=== PATIENT | male | born 1985 | race Caucasian/White ===

== ENCOUNTER 2022-02-14 12:12 | Inpatient (IN) | payer SELFPAY ==
[2022-02-14 13:25] LABS: Basophils # (Auto) 0.1 K/mm3 (0.0-0.1); Basophils % (Auto) 0.7 % (0.0-1.8); Eosinophils # (Auto) 0.1 K/mm3 (0.0-0.4); Eosinophils % (Auto) 0.7 % (0.0-4.3); Hematocrit 55.8 % (35.5-45.6); Hemoglobin 18.8 gm/dl (11.8-15.2); Lymphocytes # (Auto) 2.6 K/mm3 (1.2-5.4); Lymphocytes % (Auto) 25.2 % (13.4-35.0); Mean Corpuscular HGB Conc 34 % (32-34); Mean Corpuscular Volume 85 fl (84-94); Monocytes # (Auto) 0.9 K/mm3 (0.0-0.8); Monocytes % (Auto) 8.5 % (0.0-7.3); Platelet Count 409 K/mm3 (140-440); Red Blood Count 6.57 M/mm3 (3.65-5.03); Red Cell Distribution Width 14.1 % (13.2-15.2)
[2022-02-14 13:35] LABS: Bacteria,Urine 1+ /HPF (Negative); Bilirubin,Urine NEG (Negative); Blood,Urine NEG (Negative); Color,Urine Amber (Yellow); Mucus,Urine 3+ /HPF; Urobilinogen,Urine < 2.0 mg/dL (<2.0)
[2022-02-14 13:49] LABS: Alanine Aminotransferase 18 units/L (7-56); Albumin 4.7 g/dL (3.9-5); BUN/Creatinine Ratio 14; Blood Urea Nitrogen 14 mg/dL (9-20); Calcium 10.2 mg/dL (8.4-10.2); Hemolysis Index 15
[2022-02-14] MEDS ORDERED: SODIUM CHLORIDE 0.9% 1000 ML 1,000 ML IV ONE (20:20)
[2022-02-14] MEDS ORDERED: MORPHINE 4 MG/1 ML INJ IV ONE (20:45)
[2022-02-14] MEDS ORDERED: FAMOTIDINE 20 MG/2 ML INJ IV ONE (20:45)
[2022-02-14] MEDS ORDERED: ONDANSETRON 4 MG/2 ML INJ IV ONE (20:45)
--- NOTE | 2022-02-14 22:35 | Cat Scan Report ---
CT ABDOMEN AND PELVIS WITH CONTRAST INDICATION / CLINICAL INFORMATION: abdominal pain, N/V. TECHNIQUE: Axial CT images were obtained through the abdomen and pelvis after 100 cc of Omnipaque [address] scans at this location are performed using CT dose reduction for ALARA by means of automated exposure control. COMPARISON: None available. FINDINGS: LOWER CHEST: No significant abnormality. AORTA / ARTERIES: No significant abnormality. IVC / VEINS: No significant abnormality. LYMPH NODES: No significant adenopathy. COLON: No significant abnormality. APPENDIX: No significant abnormality. STOMACH / SMALL BOWEL: Short segment of dilated small bowel involving the proximal jejunum. This lamont ures up to 3.3 cm PERITONEUM: No free fluid. No free air. No fluid collection. LIVER: No significant abnormality. GALLBLADDER: No significant abnormality. BILE DUCTS: No significant abnormality. PANCREAS: No significant abnormality. SPLEEN: No significant abnormality. ADRENALS: No significant abnormality. RIGHT KIDNEY / URETER: No significant abnormality. LEFT KIDNEY / URETER: No significant abnormality. URINARY BLADDER: No significant abnormality. REPRODUCTIVE ORGANS: No significant abnormality. SKELETAL SYSTEM: No significant abnormality. ADDITIONAL FINDINGS: None. IMPRESSION: 1. Short segment of dilated proximal jejunum which can be seen with a low-grade partial small bowel o bstruction versus enteritis. Signer Name: Yayo Blood DO Signed: 02/14/2022 10:30 PM Workstation Name: [id number]
--- NOTE | 2022-02-15 01:34 | Emergency Department Report ---
ED Abdominal Pain HPI - General Chief Complaint: Abdominal Pain Stated Complaint: ABDOMINAL PAIN Source: patient, family Mode of arrival: Ambulatory Limitations: Language Barrier - History of Present Illness Initial Comments: Patient is a 36-year-old male with history of ikk-wmksdwn-nzmtimgyf diabetes who presents to the ED with complaint of acute onset persistent intr actable nausea and vomiting for the last 3 days. Patient also complains of persistent diffuse abdominal pain with lack of appetite. Patient states that the vomiting is gets triggered whenever he tries to drink fluids or eat any food. Patient denies fever, chills, cough, chest pain or shortness of breath, sore throat, dysuria, urinary frequency and urgency, hematuria, testicular pain, diarrhea, hematochezia, hematemesis, headache, dizziness or seizures and lightheadedness or syncope MD Complaint: abdominal pain, other (Nausea and vomiting) -: Sudden, days(s) (3) Location: diffuse Radiation: none Migration to: no migration Severity scale (0 -10): 8 Quality: cramping, sharp Consistency: constant Improves With: nothing Worsens With: eating, vomiting Context: possible food poisoning Associated Symptoms: denies other symptoms, nausea, vomiting. denies: diarrhea, fever, chills, constipation, dysuria, hematemesis, hematochezia, melena, hematuria, anorexia, syncope - Related Data Previous Rx's Medication Instructions Recorded Last Taken Type HYDROcodone/APAP 5-325 [[place] 1 - 2 each PO Q6HR PRN #14 tablet 10/29/15 Unknown Rx 5/325] Ranitidine HCl [Acid Panel Installer] 150 mg PO BID #60 tablet 10/29/15 Unknown Rx Allergies Allergy/AdvReac Type Severity Reaction Status Date / Time No Known Allergies Allergy Verified 10/28/15 18:51 ED Review of Systems ROS: Stated complaint: ABDOMINAL PAIN Other details as noted in HPI Constitutional: denies: chills, fever Eyes: denies: eye pain, eye discharge, vision change ENT: denies: ear pain, throat pain Respiratory: denies: cough, shortness of breath, wheezing Cardiovascular: denies: chest pain, palpitations Endocrine: no symptoms reported Gastrointestinal: abdominal pain, nausea, vomiting. denies: diarrhea Genitourinary: denies: urgency, dysuria Musculoskeletal: denies: back pain, joint swelling, arthralgia Skin: denies: rash, lesions Neurological: denies: headache, weakness, paresthesias Psychiatric: denies: anxiety, depression Hematological/Lymphatic: denies: easy bleeding, easy bruising ED Past Medical Hx - Past Medical History Previous Medical History?: Yes Hx Diabetes: Yes - Surgical History Past Surgical History?: No - Social History Smoking Status: Current Some Day Smoker Substance Use Type: None (denies illicit drug use), Alcohol (occasional) - Medications Home Medications: Home Medications Medication Instructions Recorded Confirmed Last Taken Type HYDROcodone/APAP 5-325 [[place] 1 - 2 each PO Q6HR PRN #14 tablet 10/29/15 Unknown Rx 5/325] Ranitidine HCl [Acid Panel Installer] 150 mg PO BID #60 tablet 10/29/15 Unknown Rx ED Physical Exam - General Limitations: Language Barrier General appearance: alert, in no apparent distress - Head Head exam: Present: atraumatic, normocephalic, normal inspection - Eye Eye exam: Present: normal appearance, PERRL, EOMI Pupils: Present: normal accommodation - ENT ENT exam: Present: normal exam, normal orophraynx, mucous membranes moist, TM's normal bilaterally, normal external ear exam - Neck Neck exam: Present: normal inspection, full ROM. Absent: tenderness - Respiratory Respiratory exam: Present: normal lung sounds bilaterally. Absent: respiratory distress, wheezes, rales, rhonchi, chest wall tenderness, decreased breath sounds - Cardiovascular Cardiovascular Exam: Present: regular rate, normal rhythm, normal heart sounds. Absent: systolic murmur, diastolic murmur, rubs, gallop - GI/Abdominal GI/Abdominal exam: Present: soft, tenderness (Palpable diffuse abdominal t enderness), hyperactive bowel sounds. Absent: guarding, rebound, normal bowel sounds, hypoactive bowel sounds, organomegaly - Extremities Exam Extremities exam: Present: normal inspection, full ROM, normal capillary refill. Absent: tenderness - Back Exam Back exam: Present: normal inspection, full ROM. Absent: tenderness, CVA tenderness (R), CVA tenderness (L), muscle spasm, paraspinal tenderness, vertebral tenderness - Neurological Exam Neurological exam: Present: alert, oriented X3, CN II-XII intact, normal gait, reflexes normal - Psychiatric Psychiatric exam: Present: normal affect, normal mood - Skin Skin exam: Present: warm, dry, intact, normal color. Absent: rash ED Course Vital Signs 02/14/22 02/14/22 02/14/22 20:59 21:01 21:15 Pulse Rate Respiratory Rate Blood Pressure 123/79 123/79 Blood Pressure [Left] O2 Sat by Pulse 100 98 98 Oximetry 02/14/22 02/14/22 02/14/22 21:31 22:09 22:15 Pulse Rate Respiratory Rate Blood Pressure 116/82 118/88 118/88 Blood Pressure [Left] O2 Sat by Pulse 98 98 99 Oximetry 02/14/22 02/14/22 02/14/22 22:31 23:01 23:31 Pulse Rate Respiratory Rate Blood Pressure 114/76 106/76 114/78 Blood Pressure [Left] O2 Sat by Pulse 99 99 98 Oximetry 02/14/22 02/15/22 02/15/22 23:47 00:01 00:02 Pulse Rate 69 Respiratory 14 Rate Blood Pressure 114/78 92/56 Blood Pressure 92/56 [Left] O2 Sat by Pulse 98 98 100 Oximetry 02/15/22 02/15/22 02/15/22 00:26 00:31 01:01 Pulse Rate 87 Respiratory 14 Rate Blood Pressure 95/60 92/60 Blood Pressure 102/69 [Left] O2 Sat by Pulse 100 98 97 Oximetry - Reevaluation(s) Reevaluation #1: 02/15/22 01:38 I paged and discussed the patient's case with the general surgeon on-call Dr. Bustos who advised that the patient be admitted to the hospital by the hospitalist physician on-call Dr. Damon, and that an NG tube be placed on the patient. I also paged and discussed the patient's case with the hospitalist physician on-call Dr. Damon who admitted the patient to the hospital. ED Medical Decision Making - Lab Data Result diagrams: 02/14/22 12:43 02/14/22 12:43 - Radiology Data Radiology results: report reviewed, image reviewed [facility] [address] [place] [address] Cat Scan Report Signed Patient: CASSIE VILLALOBOS MR#: [id number] : 1985 Acct:[id number] Age/Sex: 36 / M A DM Date: 02/14/22 Loc: ED Attending Dr: Ordering Physician: SHERMAN ALAS Date of Service: 02/14/22 Procedure(s): CT abdomen pelvis w con Accession Number(s): [id number] cc: SHERMAN ALAS CT ABDOMEN AND PELVIS WITH CONTRAST INDICATION / CLINICAL INFORMATION: abdominal pain, N/V. TECHNIQUE: Axial CT images were obtained through the abdomen and pelvis after 100 cc of Omnipaque [address] scans at this location are performed using CT dose reduction for ALARA by means of automated exposure control. COMPARISON: None available. FINDINGS: LOWER CHEST: No significant abnormality. AORTA / ARTERIES: No significant abnormality. IVC / VEINS: No significant abnormality. LYMPH NODES: No significant adenopathy. COLON: No significant abnormality. APPENDIX: No significant abnormality. STOMACH / SMALL BOWEL: Short segment of dilated small bowel involving the proximal jejunum. This measures up to 3.3 cm PERITONEUM: No free fluid. No free air. No fluid collection. LIVER: No significant abnormality. GALLBLADDER: No significant abnormality. BILE DUCTS: No significant abnormality. PANCREAS: No significant abnormality. SPLEEN: No significant abnormality. ADRENALS: No significant abnormality. RIGHT KIDNEY / URETER: No significant abnormality. LEFT KIDNEY / URETER: No significant abnormality. URINARY BLADDER: No significant abnormality. REPRODUCTIVE ORGANS: No significant abnormality. SKELETAL SYSTEM: No significant abnormality. ADDITIONAL FINDINGS: None. IMPRESSION: 1. Short segment of dilated proximal jejunum which can be seen with a low-grade partial small bowel obstruction versus enteritis. Signer Name: Yayo Cleary DO Signed: 02/14/2022 10:30 PM Workstation Name: [id number] Transcribed By: NS Dictated By: YAYO CLEARY DO Electronically Authenticated By: YAYO CLEARY DO Signed Date/Time: 02/14/222229 DD/ 26 TD/TT: - Medical Decision Making This is a 36-year-old male with history of lmh-xdfpwlz-ekxhmyfar diabetes who presents to the ED with complaint of acute onset persistent intractable nausea and vomiting for the last 3 days. Patient also complains of persistent diffuse abdominal pain with lack of appetite. Patient states that the vomiting is gets triggered whenever he tries to drink fluids or eat any food. In the ED, patient is alert and oriented x3 and is not in any distress. Patient was treated in the ED for nausea and vomiting, also given antacids and pain medications. Patient also received normal saline 1 L IV bolus x1. Lab test results were reviewed and are all nonactionable except for hyperglycemia of 264 mg/dL which after normal saline 1 L IV bolus infusion, the jluoq-ew-yhmu blood glucose was 223 mg/dL. Abdomen pelvis CT scan with IV contrast showed short segment of dilated proximal jejunum which can be seen with a low-grade partial small bowel obstruction versus enteritis. I therefore discussed the patient's case with the ED attending physician Dr. Diego who agreed with the plan of care to consult the general surgeon on-call Dr. Bustos and the hospitalist physician on-call Dr. Damon for admission of the patient to the hospital. I therefore paged and discussed the patient's case with Dr. Bustos who advised that the patient be admitted to the hospital by the hospitalist physician on-call Dr. Damon, and that an NG tube be inserted and the patient to d ecompress the abdomen and the patient be given pain medications. Dr. Bustos to consult on the patient upon admission. I therefore paged and discussed the patient's case with Dr. Damon the hospitalist physician on-call who admitted the patient to the hospital. - Differential Diagnosis Dehydration; GERD; viral gastroenteritis; SBO; pancreatitis; appendicitis Critical care attestation.: If time is entered above; I have spent that time in minutes in the direct care of this critically ill patient, excluding procedure time. ED Disposition Clinical Impression: Abdominal pain in male, Nausea and vomiting in adult patient, Partial small bowel obstruction Hyperglycemia due to type 2 diabetes mellitus Qualifiers: Diabetes mellitus shelter insulin use: without shelter use Qualified Code(s): E11.65 - Type 2 diabetes mellitus with hyperglycemia Disposition: 02 SHORT TERM HOSPITAL Is pt being admited?: Yes Does the pt Need Aspirin: No Condition: Stable Instructions: Diabetes Mellitus Type 2 in Adults (ED) Referrals: PRIMARY CARE, [Primary Care Provider] - 3-5 Days Time of Disposition: 01:37 Print Language: MAURITANIAN
[2022-02-15] MEDS ORDERED: ONDANSETRON 4 MG/2 ML INJ IV ONE (01:41)
[2022-02-15] MEDS ORDERED: MORPHINE 2 MG/1 ML INJ IV PRN (01:41)
[2022-02-15] MEDS ORDERED: ONDANSETRON 4 MG/2 ML INJ IV PRN (01:41)
[2022-02-15] MEDS ORDERED: SODIUM CHLORIDE 0.9% 1000 ML 1,000 ML IV ONE (01:41)
[2022-02-15] MEDS ORDERED: ACETAMINOPHEN 325 MG TAB PO PRN ×2 (01:41→03:23)
[2022-02-15] MEDS ORDERED: HYDROmorphone 1 MG/1 ML INJ IV ONE (01:41)
[2022-02-15] MEDS ORDERED: DEXTROSE 50% IN WATER (25GM) 50 ML SYRINGE IV PRN (03:23)
[2022-02-15] MEDS ORDERED: MORPHINE 4 MG/1 ML INJ IV PRN (03:23)
--- NOTE | 2022-02-15 03:30 | History and Physical Report ---
History of Present Illness Date of examination: 02/15/22 Date of admission: 02/15/22 Chief complaint: Abdominal pain History of present illness: 36-year-old male with history of eqx-violtuw-xffmowlzz diabetes who presents to the ED with complaint of acute onset persistent intractable nausea and vomiting for the last 3 days. Patient also complains of persistent diffuse abdominal pain with lack of appetite. Patient states that the vomiting is gets triggered whenever he tries to drink fluids or eat any food. Patient denies fever, chills, cough, chest pain or shortness of breath, sore throat, dysuria, urinary frequency and urgency, hematuria, testicular pain, diarrhea, hematochezia, hematemesis, headache, dizziness or seizures and lightheadedness or syncope In the emergency room patient Abdomen pelvis CT scan with IV contrast showed short segment of dilated proximal jejunum which can be seen with a low-grade partial small bowel obstruction versus enteritis. Subsequently Case discussed with on-call surgeon Dr. Bustos will see the patient in consultation. Past History Past Medical History: diabetes Past Surgical History: No surgical history Social history: smoking, alcohol abuse Family history: diabetes Medications and Allergies Allergies Allergy/AdvReac Type Severity Reaction Status Date / Time No Known Allergies Allergy Verified 10/28/15 18:51 Home Medications Medication Instructions Recorded Confirmed Last Taken Type HYDROcodone/APAP 5-325 [[place] 1 - 2 each PO Q6HR PRN #14 tablet 10/29/15 Unknown Rx 5/325] Ranitidine HCl [Acid Fashion Stylist] 150 mg PO BID #60 tablet 10/29/15 Unknown Rx Active Meds: Active Medications Acetaminophen (Acetaminophen 325 Mg Tab) 650 mg PO Q4H PRN PRN Reason: Pain MILD(1-3)/Fever >100.5/SEGAL Acetaminophen (Acetaminophen 325 Mg Tab) 650 mg PO Q4H PRN PRN Reason: Pain MILD(1-3)/Fever >100.5/SEGAL Dextrose (Dextrose 50% In Water (25gm) 50 Ml Syringe) 50 ml IV Q30MIN PRN; Protocol PRN Reason: Hypoglycemia Famotidine (Famotidine 20 Mg/2 Ml Inj) 20 mg IV BID AZUL Heparin Sodium (Porcine) (Heparin 5,000 Unit/1 Ml Vial) 5,000 unit SUB-Q Q12HR AZUL Dextrose/Sodium Chloride (D5/0.45ns) 1,000 mls @ 100 mls/hr IV DIRECT AZUL Insulin Human Lispro (Insulin Lispro 100 Unit/Ml) 0 unit SUB-Q Q6HR AZUL; Protocol Morphine Sulfate (Morphine 2 Mg/1 Ml Inj) 2 mg IV Q4H PRN PRN Reason: Pain, Moderate (4-6) Morphine Sulfate (Morphine 2 Mg/1 Ml Inj) 2 mg IV Q4H PRN PRN Reason: Pain, Moderate (4-6) Morphine Sulfate (Morphine 4 Mg/1 Ml Inj) 4 mg IV Q4H PRN PRN Reason: Pain , Severe (7-10) Ondansetron HCl (Ondansetron 4 Mg/2 Ml Inj) 4 mg IV Q8H PRN PRN Reason: Nausea And Vomiting Ondansetron HCl (Ondansetron 4 Mg/2 Ml Inj) 4 mg IV Q8H PRN PRN Reason: Nausea And Vomiting Sodium Chloride (Sodium Chloride 0.9% 10 Ml Flush Syringe) 10 ml IV PRN PRN PRN Reason: LINE FLUSH Sodium Chloride (Sodium Chloride 0.9% 10 Ml Flush Syringe) 10 ml IV BID AZUL Sodium Chloride (Sodium Chloride 0.9% 10 Ml Flush Syringe) 10 ml IV PRN PRN PRN Reason: LINE FLUSH Review of Systems All systems: negative Gastrointestinal: abdominal pain, nausea, vomiting, other (Lack of appetite) Exam - Constitutional Vitals: Temp Pulse Resp BP Pulse Ox 87 14 108/71 97 02/15/22 00:26 02/15/22 00:26 02/15/22 02:31 02/15/22 02:31 General appearance: Present: no acute distress, well-nourished - EENT Eyes: Present: PERRL ENT: hearing intact, clear oral mucosa - Neck Neck: Present: supple, normal ROM - Respiratory Respiratory effort: normal Respiratory: bilateral: CTA - Cardiovascular Heart Sounds: Present: S1 & S2. Absent: rub, click - Extremities Extremities: pulses symmetrical, No edema Peripheral Pulses: within normal limits - Abdominal General gastrointestinal: Present: soft, non-tender, non-distended, normal bowel sounds Male genitourinary: Present: normal - Integumentary Integumentary: Present: clear, warm, dry - Musculoskeletal Musculoskeletal: gait normal, strength equal bilaterally - Psychiatric Psychiatric: appropriate mood/affect, intact judgment & insight - Neurologic Neurologic: CNII-XII intact, moves all extremities Results - Labs CBC & Chem 7: 02/14/22 12:43 02/14/22 12:43 Labs: Laboratory Last Values WBC 10.2 K/mm3 (4.5-11.0) 02/14/22 12:43 RBC 6.57 M/mm3 (3.65-5.03) H 02/14/22 12:43 Hgb 18.8 gm/dl (11.8-15.2) H 02/14/22 12:43 Hct 55.8 % (35.5-45.6) H 02/14/22 12:43 MCV 85 fl (84-94) 02/14/22 12:43 MCH 29 pg (28-32) 02/14/22 12:43 MCHC 34 % (32-34) 02/14/22 12:43 RDW 14.1 % (13.2-15.2) 02/14/22 12:43 Plt Count 409 K/mm3 (140-440) 02/14/22 12:43 Lymph % (Auto) 25.2 % (13.4-35.0) 02/14/22 12:43 [place] % (Auto) 8.5 % (0.0-7.3) H 02/14/22 12:43 Eos % (Auto) 0.7 % (0.0-4.3) 02/14/22 12:43 Baso % (Auto) 0.7 % (0.0-1.8) 02/14/22 12:43 Lymph # (Auto) 2.6 K/mm3 (1.2-5.4) 02/14/22 12:43 [place] # (Auto) 0.9 K/mm3 (0.0-0.8) H 02/14/22 12:43 Eos # (Auto) 0.1 K/mm3 (0.0-0.4) 02/14/22 12:43 Baso # (Auto) 0.1 K/mm3 (0.0-0.1) 02/14/22 12:43 Seg Neutrophils % 64.9 % (40.0-70.0) 02/14/22 12:43 Seg Neutrophils # 6.6 K/mm3 (1.8-7.7) 02/14/22 12:43 Sodium 136 mmol/L (137-145) L 02/14/22 12:43 Potassium 4.0 mmol/L (3.6-5.0) 02/14/22 12:43 Chloride 92.6 mmol/L (98-107) L 02/14/22 12:43 Carbon Dioxide 29 mmol/L (22-30) 02/14/22 12:43 Anion Gap 18 mmol/L 02/14/22 12:43 BUN 14 mg/dL (9-20) 02/14/22 12:43 Creatinine 1.0 mg/dL (0.8-1.3) 02/14/22 12:43 Estimated GFR > 60 ml/min 02/14/22 12:43 BUN/Creatinine Ratio 14 % 02/14/22 12:43 Glucose 264 mg/dL (75-100) H 02/14/22 12:43 POC Glucose 223 mg/dL (70-105) H 02/14/22 22:20 Calcium 10.2 mg/dL (8.4-10.2) 02/14/22 12:43 Total Bilirubin 0.60 mg/dL (0.1-1.2) 02/14/22 12:43 AST 15 units/L (5-40) 02/14/22 12:43 ALT 18 units/L (7-56) 02/14/22 12:43 Alkaline Phosphatase 102 units/L (35-129) 02/14/22 12:43 Total Protein 8.7 g/dL (6.3-8.2) H 02/14/22 12:43 Albumin 4.7 g/dL (3.9-5) 02/14/22 12:43 Albumin/Globulin Ratio 1.2 % 02/14/22 12:43 Lipase 34 units/L (13-60) 02/14/22 12:43 Urine Color Stormy (Yellow) 02/14/22 12:37 Urine Turbidity Clear (Clear) 02/14/22 12:37 Urine pH 5.0 (5.0-7.0) 02/14/22 12:37 Ur Specific Cobb 1.027 (1.003-1.030) 02/14/22 12:37 Urine Protein 100 mg/dl mg/dL (Negative) 02/14/22 12:37 Urine Glucose (UA) >=500 mg/dL (Negative) 02/14/22 12:37 Urine Ketones 80 mg/dL (Negative) 02/14/22 12:37 Urine Blood Neg (Negative) 02/14/22 12:37 Urine Nitrite Neg (Negative) 02/14/22 12:37 Urine Bilirubin Neg (Negative) 02/14/22 12:37 Urine Urobilinogen < 2.0 mg/dL (<2.0) 02/14/22 12:37 Ur Leukocyte Esterase Neg (Negative) 02/14/22 12:37 Urine WBC (Auto) 2.0 /HPF (0.0-6.0) 02/14/22 12:37 Urine RBC (Auto) 3.0 /HPF (0.0-6.0) 02/14/22 12:37 U Epithel Cells (Auto) 2.0 /HPF (0-13.0) 02/14/22 12:37 Urine Bacteria (Auto) 1+ /HPF (Negative) 02/14/22 12:37 Urine Mucus 3+ /HPF 02/14/22 12:37 - Imaging and Cardiology CT scan - abdomen: report reviewed Assessment and Plan VTE prophylaxis?: Chemical Plan of care discussed with patient/family: Yes - Patient Problems (1) Partial small bowel obstruction Current Visit: Yes Status: Acute Plan to address problem: Admit the patient to the [facility]. NPO. Normal saline at the rate of 100 cc/h. Pepcid 20 mg IV every 12 hours. Zofran 4 million IV every 6 hours as needed. Reconsult surgeon Dr. Bustos to see the patient for evaluation and further management. (2) Abdominal pain in male Current Visit: Yes Status: Acute Plan to address problem: Morphine 2 mg IV every 4 hours as needed. Pepcid 20 mg IV every 12 hours. (3) Hyperglycemia due to type 2 diabetes mellitus Current Visit: Yes Status: Acute Qualifiers: Diabetes mellitus dedicated intermodal truck driver insulin use: without dedicated intermodal truck driver use Qualified Code(s): E11.65 - Type 2 diabetes mellitus with hyperglycemia Plan to address problem: Accu-Chek every 6 hours with Humalog moderate dose coverage. Diabetic education (4) Nausea and vomiting in adult patient Current Visit: Yes Status: Acute Plan to address problem: NPO. Normal saline at the rate of 100 cc/h. Pepcid 20 mg IV every 12 hours. Zofran 4 million IV every 6 hours as needed. Reconsult surgeon Dr. Bustos to see the patient for evaluation and further management. (5) DVT prophylaxis Current Visit: Yes Status: Acute Plan to address problem: Heparin 5000 units subcu every 12 hours for DVT prophylaxis. Pepcid 20 mg IV every 12 hours for GI prophylaxis. Patient is a full code
--- NOTE | 2022-02-15 04:27 | XRay Report ---
ABDOMEN 1 VIEW(S) 02/15/2022 4:11 AM INDICATION / CLINICAL INFORMATION: NG Tube placement. COMPARISON: None available. FINDINGS: The tip of an esophagogastric tube projects over the body of the stomach in expected position. Signer Name: Vlad Jenkins MD Signed: 02/15/2022 4:23 AM Workstation Name: [id number]
[2022-02-15] MEDS: D5W/0.45% NACL 1,000 ML IV SCH ×3 (05:02→22:29)
[2022-02-15] MEDS: INSULIN LISPRO 100 UNIT/ML SUB-Q SCH ×3 (06:27→17:42)
[2022-02-15] MEDS: FAMOTIDINE 20 MG/2 ML INJ IV SCH ×2 (09:15→22:50)
[2022-02-15] MEDS: MORPHINE 2 MG/1 ML INJ IV PRN ×2 (09:15→22:13)
[2022-02-15] MEDS: HEPARIN 5,000 UNIT/1 ML VIAL SUB-Q SCH ×2 (09:19→22:14)
[2022-02-15] MEDS: ONDANSETRON 4 MG/2 ML INJ IV PRN ×2 (09:23→22:14)
--- NOTE | 2022-02-15 13:41 | Event Note ---
Date: 02/15/22 Patient seen and examined at the bedside multiple times. Patient and do not understand the magnitude of patient's condition. Patient wants to eat and threatens to remove NG tube. Explained risk of patient not following care plan and leaving AGAINST MEDICAL ADVICE. Patient will stay and wait for general surgery evaluation. No other complaints at this time.
[2022-02-15] MEDS ORDERED: PHENOL 1.4% 177 ML BOTTLE MM PRN (13:51)
--- NOTE | 2022-02-15 20:01 | Consultation ---
History of Present Illness Consult date: 02/15/22 Reason for consult: abdominal pain - History of present illness History of present illness: 36 yo male with 4 day h/o diffuse, crampy abdominal pain, nausea and vomiting. No prior abd surgery or hernias. No hematochezia. No contacts with similar complaints. Past History Past Medical History: diabetes Past Surgical History: No surgical history Social history: smoking, alcohol abuse Family history: diabetes Medications and Allergies Allergies Allergy/AdvReac Type Severity Reaction Status Date / Time No Known Allergies Allergy Verified 10/28/15 18:51 Home Medications Medication Instructions Recorded Confirmed Last Taken Type HYDROcodone/APAP 5-325 [[place] 1 - 2 each PO Q6HR PRN #14 tablet 10/29/15 02/15/22 Unknown Rx 5/325] Ranitidine HCl [Acid [employer]] 150 mg PO BID #60 tablet 10/29/15 02/15/22 Unknown Rx Active Meds: Active Medications Acetaminophen (Acetaminophen 325 Mg Tab) 650 mg PO Q4H PRN PRN Reason: Pain MILD(1-3)/Fever >100.5/SEGAL Dextrose (Dextrose 50% In Water (25gm) 50 Ml Syringe) 50 ml IV Q30MIN PRN; Protocol PRN Reason: Hypoglycemia Famotidine (Famotidine 20 Mg/2 Ml Inj) 20 mg IV BID [facility] Last Admin: 02/15/22 09:15 Dose: 20 mg Heparin Sodium (Porcine) (Heparin 5,000 Unit/1 Ml Vial) 5,000 unit SUB-Q Q12HR [facility] Last Admin: 02/15/22 09:19 Dose: 5,000 unit Dextrose/Sodium Chloride (D5/0.45ns) 1,000 mls @ 100 mls/hr IV DIRECT AZUL Last Admin: 02/15/22 12:30 Dose: 100 mls/hr Insulin Human Lispro (Insulin Lispro 100 Unit/Ml) 0 unit SUB-Q Q6HR [facility]; Protocol Last Admin: 02/15/22 17:42 Dose: Not Given Morphine Sulfate (Morphine 2 Mg/1 Ml Inj) 2 mg IV Q4H PRN PRN Reason: Pain, Moderate (4-6) Last Admin: 02/15/22 09:15 Dose: 2 mg Morphine Sulfate (Morphine 4 Mg/1 Ml Inj) 4 mg IV Q4H PRN PRN Reason: Pain , Severe (7-10) Ondansetron HCl (Ondansetron 4 Mg/2 Ml Inj) 4 mg IV Q8H PRN PRN Reason: Nausea And Vomiting Last Admin: 02/15/22 09:23 Dose: 4 mg Phenol (Phenol 1.4% 177 Ml Bottle) 1 spray MM PRN PRN PRN Reason: Sore Throat Last Admin: 02/15/22 14:04 Dose: 1 spray Sodium Chloride (Sodium Chloride 0.9% 10 Ml Flush Syringe) 10 ml IV BID [facility] Last Admin: 02/15/22 10:00 Dose: 10 ml Sodium Chloride (Sodium Chloride 0.9% 10 Ml Flush Syringe) 10 ml IV PRN PRN PRN Reason: LINE FLUSH Review of Systems All systems: negative Exam Vital Signs Pulse Ox 100 02/14/22 20:59 - General physical appearance Positive: well developed, well nourished, no distress - Eyes Positive: PERRL, normal occular movement - ENT Positive: normal pinna, normal nares, normal mucosa, no hearing loss, no congestion - Neck Positive: no masses, no bruits, trachea midline, no venous distension - Respiratory Positive: normal expansion, normal respiratory effort, clear to auscultation - Cardiovascular Rhythm: regular Heart Sounds: Present: S1 & S2. Absent: rub, click - Extremities Extremities: no ischemia, pulses symmetrical, No edema - Breasts Breasts: normal, no mass, no skin changes - Abdomen Abdomen: Present: soft, bowel sounds normal. Absent: tender, distended Hernia: none - Genitourinary Male Genitourinary: normal Female Genitourinary: normal - Integumentary no rash, no growths, no abnormal pigmentation - Neurologic Neurologic: alert and oriented to time, place and person, motor strength and sensation are grossly intact - Musculoskeletal normal gait, normal posture - Psychiatric Psychiatric: appropriate mood/affect, intact judgment & insight Results - Labs 02/14/22 12:43 02/14/22 12:43 Abnormal lab results 02/14/22 02/15/22 02/15/22 Range/Units 22:20 06:20 11:33 POC Glucose 223 H 225 H 238 H (70-105) mg/dL 02/15/22 Range/Units 17:18 POC Glucose 182 H (70-105) mg/dL - Imaging CT scan - abdomen: report reviewed CT scan - pelvis: report reviewed Assessment and Plan - Patient Problems (1) Partial small bowel obstruction Current Visit: Yes Status: Acute Plan to address problem: 1) CBC, BMP and AXR in the am 2) NPO 3) NG to LIS
[2022-02-16] MEDS: INSULIN LISPRO 100 UNIT/ML SUB-Q SCH ×4 (00:12→18:06)
[2022-02-16] MEDS: MORPHINE 2 MG/1 ML INJ IV PRN ×2 (05:57→10:06)
[2022-02-16 06:40] LABS: Basophils % (Auto) 0.4 % (0.0-1.8); Eosinophils # (Auto) 0.2 K/mm3 (0.0-0.4); Eosinophils % (Auto) 1.9 % (0.0-4.3); Hematocrit 46.6 % (35.5-45.6); Lymphocytes # (Auto) 3.5 K/mm3 (1.2-5.4); Mean Corpuscular HGB Conc 34 % (32-34); Mean Corpuscular Volume 86 fl (84-94); Monocytes # (Auto) 0.9 K/mm3 (0.0-0.8); Monocytes % (Auto) 9.6 % (0.0-7.3); Platelet Count 327 K/mm3 (140-440); Red Blood Count 5.43 M/mm3 (3.65-5.03); Red Cell Distribution Width 14.3 % (13.2-15.2)
[2022-02-16 06:52] LABS: BUN/Creatinine Ratio 12; Blood Urea Nitrogen 11 mg/dL (9-20); Calcium 9.1 mg/dL (8.4-10.2); Hemolysis Index 26
[2022-02-16] MEDS: D5W/0.45% NACL 1,000 ML IV SCH (08:42)
--- NOTE | 2022-02-16 08:42 | XRay Report ---
ABDOMEN 2 VIEW(S) INDICATION / CLINICAL INFORMATION: Partial small bowel obstruction. COMPARISON: Yesterday FINDINGS: TUBES / LINES: The nasogastric tube is unchanged in position. The sidehole of the nasogastric tube te rminates at the GE junction. Consider advancement by 5 cm. BOWEL GAS PATTERN: No significant abnormality. No dilated bowel or fluid levels are identified. FREE AIR / EXTRALUMINAL GAS: None seen. ADDITIONAL FINDINGS: No significant additional findings. IMPRESSION: No significant abnormality. Consider advancement of the nasogastric tube. Signer Name: Arnoldo Chin Jr, MD Signed: 02/16/2022 8:37 AM Workstation Name: [id number]
[2022-02-16] MEDS: ONDANSETRON 4 MG/2 ML INJ IV PRN (10:14)
[2022-02-16] MEDS: HEPARIN 5,000 UNIT/1 ML VIAL SUB-Q SCH ×2 (10:29→21:58)
[2022-02-16] MEDS: FAMOTIDINE 20 MG/2 ML INJ IV SCH ×2 (10:29→21:58)
--- NOTE | 2022-02-16 11:42 | Progress Note ---
Assessment and Plan Assessment and plan: #Partial small bowel obstruction -continue NGT to suction, IVFs, PRN zofran -patient reports flatus that improves his abdominal pain -General surgery following, assistance appreciated #Abdominal pain in male-resolved #Nausea and vomiting in adult patient-improved -likely secondary to above, continue PRN pain medications and antiemetics #Hyperglycemia due to type 2 diabetes mellitus -continue accu-chek every 6 hours with Humalog high dose coverage #Advanced care planning -Disease education conducted, care plan discussed, diagnoses discussed, prognosis discussed, and patient acknowledges understanding with care plan -Time: +30 min History Interval history: Patient seen and examined at bedside with . He continues to pass flatus and is having throat pain that he feels is associated with the NG tube. Counseled patient on importance of keeping NG tube until surgeon feels it is safe for it to be removed. Hospitalist Physical - Physical exam Narrative exam: GENERAL: Well-developed well-nourished. In no acute distress. HEENT: NG tube in place CHEST/LUNGS: CTAB on room air HEART/CARDIOVASCULAR: RRR. No murmur, rubs or gallops appreciated. ABDOMEN: +BS. NT/ND. SKIN: No rashes noted. NEURO: No focal motor deficit. Follows all commands. MUSCULOSKELETAL: No joint effusion EXTREMITIES: No cyanosis, clubbing or edema. PSYCH: Cooperative. - Constitutional Vitals: Temp Pulse Resp BP Pulse Ox 97.4 F L 58 L 18 114/84 97 02/16/22 05:39 02/16/22 05:39 02/16/22 05:39 02/16/22 05:39 02/16/22 10:19 General appearance: Present: no acute distress, well-nourished Results - Labs CBC & Chem 7: 02/16/22 05:46 02/17/22 05:53 Labs: Laboratory Last Values WBC 9.7 K/mm3 (4.5-11.0) 02/16/22 05:46 RBC 5.43 M/mm3 (3.65-5.03) H 02/16/22 05:46 Hgb 16.0 gm/dl (11.8-15.2) H 02/16/22 05:46 Hct 46.6 % (35.5-45.6) H D 02/16/22 05:46 MCV 86 fl (84-94) 02/16/22 05:46 MCH 30 pg (28-32) 02/16/22 05:46 MCHC 34 % (32-34) 02/16/22 05:46 RDW 14.3 % (13.2-15.2) 02/16/22 05:46 Plt Count 327 K/mm3 (140-440) 02/16/22 05:46 Lymph % (Auto) 36.0 % (13.4-35.0) H 02/16/22 05:46 [place] % (Auto) 9.6 % (0.0-7.3) H 02/16/22 05:46 Eos % (Auto) 1.9 % (0.0-4.3) 02/16/22 05:46 Baso % (Auto) 0.4 % (0.0-1.8) 02/16/22 05:46 Lymph # (Auto) 3.5 K/mm3 (1.2-5.4) 02/16/22 05:46 [place] # (Auto) 0.9 K/mm3 (0.0-0.8) H 02/16/22 05:46 Eos # (Auto) 0.2 K/mm3 (0.0-0.4) 02/16/22 05:46 Baso # (Auto) 0.0 K/mm3 (0.0-0.1) 02/16/22 05:46 Seg Neutrophils % 52.1 % (40.0-70.0) 02/16/22 05:46 Seg Neutrophils # 5.1 K/mm3 (1.8-7.7) 02/16/22 05:46 Sodium 140 mmol/L (137-145) 02/16/22 05:46 Potassium 3.3 mmol/L (3.6-5.0) L 02/16/22 05:46 Chloride 98.7 mmol/L (98-107) 02/16/22 05:46 Carbon Dioxide 30 mmol/L (22-30) 02/16/22 05:46 Anion Gap 15 mmol/L 02/16/22 05:46 BUN 11 mg/dL (9-20) 02/16/22 05:46 Creatinine 0.9 mg/dL (0.8-1.3) 02/16/22 05:46 Estimated GFR > 60 ml/min 02/16/22 05:46 BUN/Creatinine Ratio 12 % 02/16/22 05:46 Glucose 234 mg/dL (75-100) H 02/16/22 05:46 POC Glucose 254 mg/dL (70-105) H 02/16/22 06:04 Calcium 9.1 mg/dL (8.4-10.2) 02/16/22 05:46 Total Bilirubin 0.60 mg/dL (0.1-1.2) 02/14/22 12:43 AST 15 units/L (5-40) 02/14/22 12:43 ALT 18 units/L (7-56) 02/14/22 12:43 Alkaline Phosphatase 102 units/L (35-129) 02/14/22 12:43 Total Protein 8.7 g/dL (6.3-8.2) H 02/14/22 12:43 Albumin 4.7 g/dL (3.9-5) 02/14/22 12:43 Albumin/Globulin Ratio 1.2 % 02/14/22 12:43 Lipase 34 units/L (13-60) 02/14/22 12:43 Urine Color Stormy (Yellow) 02/14/22 12:37 Urine Turbidity Clear (Clear) 02/14/22 12:37 Urine pH 5.0 (5.0-7.0) 02/14/22 12:37 Ur Specific [place] 1.027 (1.003-1.030) 02/14/22 12:37 Urine Protein 100 mg/dl mg/dL (Negative) 02/14/22 12:37 Urine Glucose (UA) >=500 mg/dL (Negative) 02/14/22 12:37 Urine Ketones 80 mg/dL (Negative) 02/14/22 12:37 Urine Blood Neg (Negative) 02/14/22 12:37 Urine Nitrite Neg (Negative) 02/14/22 12:37 Urine Bilirubin Neg (Negative) 02/14/22 12:37 Urine Urobilinogen < 2.0 mg/dL (<2.0) 02/14/22 12:37 Ur Leukocyte Esterase Neg (Negative) 02/14/22 12:37 Urine WBC (Auto) 2.0 /HPF (0.0-6.0) 02/14/22 12:37 Urine RBC (Auto) 3.0 /HPF (0.0-6.0) 02/14/22 12:37 U Epithel Cells (Auto) 2.0 /HPF (0-13.0) 02/14/22 12:37 Urine Bacteria (Auto) 1+ /HPF (Negative) 02/14/22 12:37 Urine Mucus 3+ /HPF 02/14/22 12:37 Gil/IV: Voiding Method Urinal Active Medications - Current Medications Current Medications: Generic Name Dose Route Start Last Admin Trade Name Freq PRN Reason Stop Dose Admin Acetaminophen 650 mg 02/15/22 03:23 Acetaminophen 325 Mg Tab PO Q4H PRN Pain MILD(1-3)/Fever >100.5/SEGAL Dextrose 50 ml 02/15/22 03:23 Dextrose 50% In Water (25gm) 50 Ml Syringe IV Q30MIN PRN Hypoglycemia Protocol Famotidine 20 mg 02/15/22 10:00 02/16/22 10:29 Famotidine 20 Mg/2 Ml Inj IV 20 mg BID AZUL Administration Heparin Sodium (Porcine) 5,000 unit 02/15/22 10:00 02/16/22 10:29 Heparin 5,000 Unit/1 Ml Vial SUB-Q 5,000 unit Q12HR [facility] Administration Dextrose/Sodium Chloride 1,000 mls @ 100 mls/hr 02/15/22 04:00 02/16/22 08:42 D5/0.45ns IV 100 mls/hr DIRECT [facility]UL Administration Insulin Human Lispro 0 unit 02/15/22 06:00 02/16/22 06:19 Insulin Lispro 100 Unit/Ml SUB-Q 4 unit Q6HR [facility] Administration Protocol Morphine Sulfate 2 mg 02/15/22 03:23 02/16/22 10:06 Morphine 2 Mg/1 Ml Inj IV 2 mg Q4H PRN Administration Pain, Moderate (4-6) Morphine Sulfate 4 mg 02/15/22 03:23 Morphine 4 Mg/1 Ml Inj IV Q4H PRN Pain , Severe (7-10) Ondansetron HCl 4 mg 02/15/22 03:23 02/16/22 10:14 Ondansetron 4 Mg/2 Ml Inj IV 4 mg Q8H PRN Administration Nausea And Vomiting Phenol 1 spray 02/15/22 13:51 02/15/22 14:04 Phenol 1.4% 177 Ml Bottle MM 1 spray PRN PRN Administration Sore Throat Sodium Chloride 10 ml 02/15/22 10:00 02/16/22 10:50 Sodium Chloride 0.9% 10 Ml Flush Syringe IV 10 ml BID AZUL Administration Sodium Chloride 10 ml 02/15/22 03:23 Sodium Chloride 0.9% 10 Ml Flush Syringe IV PRN PRN LINE FLUSH Nutrition/Malnutrition Assess - Dietary Evaluation Nutrition/Malnutrition Findings: Nutrition Notes Start: 02/15/22 15:06 Freq: Status: Active Protocol: Document 02/15/22 15:06 SAURAV (Rec: 02/15/22 15:16 SAURAV [id number]) Nutrition Notes Need for Assessment generated from: MD Order,Education Initial or Follow up Brief Note Current Diagnosis Diabetes,Small Bowel Obstruction Other Pertinent Diagnosis Hyperglycemia, Abdominal Pain/ N/V. Current Diet NPO (since 02/15 03:24). Height 6 ft 1 in Weight 95.254 kg [place] Body Weight (kg) 83.63 BMI 27.7 Intake Prior to Admission Poor Weight change and time frame Pt denies having loss body weight [employer]. Weight Status Overweight Subjective/Other Information RD consult for nutrition education assessment. Pt currently on NPO. Pt is on Room Air, O2 saturation @ 100%, according to Physical Assessment History notes. Pt has missing teeth, according to Physical Assessment History notes. Pt still in critical condition , not a candidate for Nutrition Education at the time, will assess feasibility on F/U. Percent of energy/protein needs met: Pt currently on NPO. Nutrition Intervention Follow-Up By: 02/17/22 Additional Comments Nutrition education will be provided on F/U, if feasible. When pertinent, start monitoring food tolerance, %PO intake of meals, and BM.
--- NOTE | 2022-02-16 15:53 | Progress Note ---
Assessment and Plan - Patient Problems (1) Partial small bowel obstruction Current Visit: Yes Status: Acute Plan to address problem: 1) DC NG 2) CLD Subjective Date of service: 02/16/22 Patient Reports: Positive: no new complaints, feels better, flatus. Negative: nausea, vomiting Objective Vital Signs - 12hr 02/16/22 02/16/22 02/16/22 05:39 09:38 10:19 Temperature 97.4 F L Pulse Rate 58 L Respiratory 18 Rate Blood Pressure 114/84 O2 Sat by Pulse 96 97 97 Oximetry 02/16/22 11:06 Temperature 99.6 F Pulse Rate 59 L Respiratory 16 Rate Blood Pressure 118/84 O2 Sat by Pulse 98 Oximetry - Abdomen PM_46_EXABD1 4, PM_46_EXABD1 6, PM_46_EXABD1 8 Hernia: none - Labs 02/16/22 05:46 02/16/22 05:46 Diabetes panel 02/16/22 Range/Units 05:46 Sodium 140 (137-145) mmol/L Potassium 3.3 L (3.6-5.0) mmol/L Chloride 98.7 (98-107) mmol/L Carbon Dioxide 30 (22-30) mmol/L BUN 11 (9-20) mg/dL Creatinine 0.9 (0.8-1.3) mg/dL Glucose 234 H (75-100) mg/dL Calcium 9.1 (8.4-10.2) mg/dL Calcium panel 02/16/22 Range/Units 05:46 Calcium 9.1 (8.4-10.2) mg/dL Pituitary panel 02/16/22 Range/Units 05:46 Sodium 140 (137-145) mmol/L Potassium 3.3 L (3.6-5.0) mmol/L Chloride 98.7 (98-107) mmol/L Carbon Dioxide 30 (22-30) mmol/L BUN 11 (9-20) mg/dL Creatinine 0.9 (0.8-1.3) mg/dL Glucose 234 H (75-100) mg/dL Calcium 9.1 (8.4-10.2) mg/dL Adrenal panel 02/16/22 Range/Units 05:46 Sodium 140 (137-145) mmol/L Potassium 3.3 L (3.6-5.0) mmol/L Chloride 98.7 (98-107) mmol/L Carbon Dioxide 30 (22-30) mmol/L BUN 11 (9-20) mg/dL Creatinine 0.9 (0.8-1.3) mg/dL Glucose 234 H (75-100) mg/dL Calcium 9.1 (8.4-10.2) mg/dL - Imaging Abdominal x-ray: report reviewed
[2022-02-16] MEDS ORDERED: POTASSIUM CHLORIDE ER 20 MEQ TAB PO ONE (21:18)
[2022-02-17] MEDS: INSULIN LISPRO 100 UNIT/ML SUB-Q SCH ×3 (01:31→13:22)
[2022-02-17] MEDS: HEPARIN 5,000 UNIT/1 ML VIAL SUB-Q SCH (09:10)
[2022-02-17] MEDS ORDERED: FAMOTIDINE 20 MG TAB PO SCH (10:00)
--- NOTE | 2022-02-17 13:31 | Progress Note ---
Assessment and Plan - Patient Problems (1) Partial small bowel obstruction Current Visit: Yes Status: Acute Plan to address problem: 1) Resolved. Pt can be discharged on as tolerated diet. No Rx. F/u with PCP. Subjective Date of service: 02/17/22 Patient Reports: Positive: no new complaints, feels better, pain is less, tolerating liquids well, bowel movement. Negative: nausea, vomiting Objective Vital Signs - 12hr 02/17/22 02/17/22 05:48 08:32 Temperature 98.3 F Pulse Rate 60 Respiratory 18 Rate Blood Pressure 106/75 O2 Sat by Pulse 95 98 Oximetry - Abdomen PM_46_EXABD1 4, PM_46_EXABD1 6, PM_46_EXABD1 8 Hernia: none - Labs 02/16/22 05:46 02/17/22 05:53 Diabetes panel 02/17/22 Range/Units 05:53 Potassium 3.7 (3.6-5.0) mmol/L Pituitary panel 02/17/22 Range/Units 05:53 Potassium 3.7 (3.6-5.0) mmol/L Adrenal panel 02/17/22 Range/Units 05:53 Potassium 3.7 (3.6-5.0) mmol/L
--- NOTE | 2022-02-17 13:56 | Discharge Summary ---
Providers - Providers Date of Admission: 02/15/22 03:25 Date of discharge: 02/17/22 Attending physician: NIKUNJ MEADOWS MD 02/15/22 01:36 Consult to Physician [CONS] Stat Comment: SHERMAN Cowan spoke with Dr. Bustos @ [phone] Consulting Provider: ORLANDO BUSTOS Physician Instructions: NG tube; pain control; admission by hospitalist MD Reason For Exam: Partial Small bowel obstruction 02/15/22 03:23 Consult to Dietitian/Nutrition [CONS] Routine Physician Instructions: Reason For Exam: Reason for Consult: Diet education Primary care physician: [employer] Hospitalization Reason for admission: bowel obstruction Condition: Stable Hospital course: 36-year-old male with history of ivu-wzpbgrv-ppahbocci diabetes who presented with acute onset abdominal pain, and intractable nausea vomiting. CT of the abdomen pelvis showed short segment of dilated proximal jejunum suggestive of a low-grade partial bowel obstruction. General surgery was consulted and an NG tube was placed to suction. Patient clinically improved and NG tube was removed. He tolerated a clear liquid diet and remained nausea and pain-free. He was discharged home with and instructions to follow-up with his primary care provider. Disposition: 01 HOME / SELF CARE / HOMELESS Final Discharge Diagnosis (Prints w/discharge instructions): Partial small bowel obstruction. Hyperglycemia due to type 2 diabetes. Abdominal pain Time spent for discharge: 40 minutes Core Measure Documentation - Palliative Care Palliative Care/ Comfort Measures: Not Applicable - Core Measures Any of the following diagnoses?: none Exam - Physical Exam Narrative exam: GENERAL: Well-developed well-nourished. In no acute distress. HEENT: Normocephalic, atraumatic. CHEST/LUNGS: CTAB on room air HEART/CARDIOVASCULAR: RRR. No murmur, rubs or gallops appreciated. ABDOMEN: +BS. NT/ND. NEURO: No focal motor deficit. Follows all commands. MUSCULOSKELETAL: No joint effusion EXTREMITIES: No cyanosis, clubbing or edema. PSYCH: Cooperative. - Constitutional Vitals: Temp Pulse Resp BP Pulse Ox 98.3 F 60 18 106/75 98 02/17/22 05:48 02/17/22 05:48 02/17/22 05:48 02/17/22 05:48 02/17/22 08:32 Plan Care Plan Goals: Please follow-up with your primary care provider. If you develop recurrence of your symptoms, please return to the ED. Follow up with: PRIMARY CARE, [Primary Care Provider] - 3-5 Days Prescriptions: metFORMIN [Glucophage] 850 mg PO BID 30 Days #60 tab Famotidine [Pepcid] 20 mg PO BID 30 Days #60 tablet Other Discharge Orders: Glucometer (Amb) Location: None Selected Glucometer supplies[Amb] Location: None Selected
[2022-02-17 14:21] VITALS: BP 100/66
== END 2022-02-17 15:05 | disposition home or self-care (01) | DRG 390 ==
LOC: ED 12:12 → 3A 02-15 03:25
PROVIDERS: ADMIT Hospitalist; ATTEND Student in an Organized Health Care Education/Training Program
PROC: 0D9670Z Drainage of Stomach with Drainage Device, Via Natural or Artificial Opening (ICD-10-PCS; principal; 2022-02-15)
DX: K56.600 Partial intestinal obstruction, unspecified as to cause (principal); E11.65 Type 2 diabetes mellitus with hyperglycemia
CPT/HCPCS: 36415; 74018; 74019; 74177; 80048; 80053; 81001; 82962; 83690; 84132; 85025; G0378; J3490; J7070; Q9967; J1170; J1644; J1815; J2270; J2405; J7030